=== PATIENT | female | born 1955 | race Caucasian/White ===

== ENCOUNTER 2017-09-06 12:41 | Emergency (ER) | payer OTHER ==
[2017-09-06 12:48] VITALS: BP 133/72; TEMP 98.1; BMI 24.3
[2017-09-06] MEDS ORDERED: KETOROLAC TROMETHAMINE 60 MG/2 ML VIAL IM ONE (14:01)
--- NOTE | 2017-09-06 14:01 | PDOC ---
History of Present Illness - General Chief Complaint: Pain Stated Complaint: SWOLLEN RT KNEE Time Seen by Provider: 09/06/17 13:34 History Source: Patient Exam Limitations: No Limitations - History of Present Illness Initial Comments: 09/06/17 13:56 62-year-old female presents to the ED with 2 months of right knee discomfort with an continual swelling. Patient denies fever, chills, radiation of pain, or decreased sensation distal of discomfort. Patient states had x-rays done about 2 months ago by her PMD and stated she had arthritis and to follow up with orthopedist. Patient states did not follow up and has been taking Motrin as needed for discomfort. Timing/Duration: intermittent Severity: mild Associated Symptoms: reports: denies symptoms Past History - Travel Traveled outside of the country in the last 30 days: No - Past Medical History Allergies/Adverse Reactions: Allergies Allergy/AdvReac Type Severity Reaction Status Date / Time No Known Allergies Allergy Verified 09/06/17 12:48 Home Medications: Ambulatory Orders Lisinopril [Prinivil] 20 mg PO DAILY 09/06/17 Asthma: Yes COPD: No HTN: Yes - Suicide/Smoking/Psychosocial Hx Smoking Status: No Smoking History: Never smoked Number of Cigarettes Smoked Daily: 0 Hx Alcohol Use: No Drug/Substance Use Hx: No Substance Use Type: None Patient Lives Alone: No Lives with/in: spouse/SO Review of Systems - Review of Systems Able to Perform ROS?: Yes Constitutional: No: Symptoms Reported HEENTM: No: Symptoms Reported Respiratory: No: Symptoms reported Cardiac (ROS): No: Symptoms Reported Musculoskeletal: Yes: Joint Pain (rt knee) Integumentary: No: Erythema Hematologic/Lymphatic: No: Symptoms Reported *Physical Exam - Vital Signs Last Vital Signs Temp Pulse Resp BP Pulse Ox 98.1 F 100 H 20 133/72 99 09/06/17 12:45 09/06/17 12:45 09/06/17 12:45 09/06/17 12:45 09/06/17 12:45 - Physical Exam General Appearance: Yes: Nourished, Appropriately Dressed. No: Apparent Distress Cardiovascular: positive: Regular Rhythm, Tachycardia. negative: Murmur Gastrointestinal/Abdominal: positive: Soft. negative: Tenderness Musculoskeletal: negative: Normal Inspection Extremity: positive: Normal Range of Motion, Tender (Lateral aspect of right knee with noted joint effusion. No increased warmth or redness noted. ) Integumentary: positive: Normal Color, Warm, Moist Neurologic: positive: Motor Strength 5/5 (ambulatory) ED Treatment Course - RADIOLOGY Radiology Studies Ordered: Category Date Time Status KNEE 3 POS-RIGHT [RAD] Stat Radiology 09/06/17 13:49 Ordered Medical Decision Making - Medical Decision Making 09/06/17 14:03 Patient with complaints of intermittent right knee pain worse with ambulation for the past 2 months. Patient was told by her PMD to follow up with orthopedist secondary to arthritis but states did not do so and since the pain continued and slightly worse and she decided come to the ER. Patient denies fever or posterior leg pain. Patient ordered for right knee x-ray 09/06/17 14:20 Since 07/15/2017 there is no change of an adverse nature. No acute pathology seen. Patient will be given referral for orthopedist Dr. Hoskins. *DC/Admit/Observation/Transfer Diagnosis at time of Disposition: Right knee pain Qualifiers: Chronicity: unspecified Qualified Code(s): M25.561 - Pain in right knee - Discharge Dispostion Disposition: HOME Condition at time of disposition: Improved - Referrals Referrals: Riri Ro MD [Primary Care Provider] - Pineda Hoskins MD [Staff Physician] - - Patient Instructions Printed Discharge Instructions: DI for Knee Effusion Additional Instructions: I recommend elevating your right leg when possible to decrease swelling and follow up with referred orthopedist. You may also take Motrin 600 mg for discomfort. You also may apply heat to the affected area which may alleviate her discomfort. - Post Discharge Activity
[2017-09-06 14:09] VITALS: PULSE 94
[2017-09-06] MEDS ORDERED: KETOROLAC TROMETHAMINE 60 MG/2 ML VIAL ONE (14:09)
== END 2017-09-06 14:24 | disposition home or self-care (01) ==
LOC: JERFT 12:41
PROC: 3E0233Z Introduction of Anti-inflammatory into Muscle, Percutaneous Approach (ICD-10-PCS; principal; 2017-09-06)
DX: M13.861 Other specified arthritis, right knee (principal); M25.561 Pain in right knee; I10 Essential (primary) hypertension; J45.909 Unspecified asthma, uncomplicated
CPT/HCPCS: 73562-TC-RT; 96372; 99281-25

== ENCOUNTER 2018-11-01 14:40 | Emergency (ER) | payer OTHER ==
[2018-11-01 14:47] VITALS: BP 141/54; PULSE 100; TEMP 98.3; BMI 23.8
--- NOTE | 2018-11-01 14:49 | PDOC ---
Rapid Medical Evaluation Chief Complaint: Injury Time Seen by Provider: 11/01/18 14:47 Medical Evaluation: Allergies Allergy/AdvReac Type Severity Reaction Status Date / Time No Known Allergies Allergy Verified 11/01/18 14:43 Vital Signs Temp Pulse Resp BP Pulse Ox 98.3 F 100 H 18 141/54 L 98 11/01/18 14:45 11/01/18 14:45 11/01/18 14:45 11/01/18 14:45 11/01/18 14:45 11/01/18 14:48 I have performed a brief in-person evaluation of the patient. The patient presents with a chief complaint of: numbness to right arm today. Patient states have now resolved with no weakness, no dizziness, no blurred vision and no heaviness in limbs Pertinent physical exam findings. NAD lungs clear bilaterally +strength = in both upper extremities + sensation bilaterally I have ordered the following. The patient will proceed to the ED for further evaluation.
--- NOTE | 2018-11-01 15:25 | PDOC ---
History of Present Illness - General Chief Complaint: Injury Stated Complaint: ARM PAIN Time Seen by Provider: 11/01/18 14:47 History Source: Patient Exam Limitations: No Limitations - History of Present Illness Initial Comments: 11/01/18 16:40 63-year-old female presents to ED for evaluation of right leg heaviness yesterday that lasted for about 5 minutes while she was sitting down. Patient states today again with sitting down at her desk when her right arm went heavy and felt numb. Patient states took 2 baby aspirin and within minutes her symptoms resolved. Patient denies any headache, visual changes, nausea, weakness previous stroke or TIA but was concerned of her symptoms and came to the ER Timing/Duration: resolved prior to arrival Severity: moderate Associated Symptoms: reports: denies symptoms Past History - Travel Traveled outside of the country in the last 30 days: No Close contact w/someone who was outside of country & ill: No - Past Medical History Allergies/Adverse Reactions: Allergies Allergy/AdvReac Type Severity Reaction Status Date / Time No Known Allergies Allergy Verified 11/01/18 14:43 Home Medications: Ambulatory Orders Lisinopril [Prinivil] 20 mg PO DAILY 09/06/17 Asthma: Yes COPD: No HTN: Yes - Suicide/Smoking/Psychosocial Hx Smoking Status: No Smoking History: Never smoked Number of Cigarettes Smoked Daily: 0 Hx Alcohol Use: No Drug/Substance Use Hx: No Substance Use Type: None Patient Lives Alone: No Lives with/in: spouse/SO Review of Systems - Review of Systems Able to Perform ROS?: Yes Constitutional: No: Symptoms Reported HEENTM: No: Symptoms Reported Respiratory: No: Symptoms reported Cardiac (ROS): No: Symptoms Reported ABD/GI: No: Symptoms Reported : No: Symptoms Reported Musculoskeletal: No: Symptoms Reported Integumentary: No: Symptoms Reported Neurological: Yes: Numbness, Other Hematologic/Lymphatic: No: Symptoms Reported *Physical Exam - Vital Signs Last Vital Signs Temp Pulse Resp BP Pulse Ox 98.3 F 100 H 18 141/54 L 98 11/01/18 14:45 11/01/18 14:45 11/01/18 14:45 11/01/18 14:45 11/01/18 14:45 - Physical Exam General Appearance: Yes: Nourished, Appropriately Dressed. No: Apparent Distress HEENT: positive: EOMI, SUNDAR Neck: positive: Supple. negative: Tender Respiratory/Chest: positive: Lungs Clear, Normal Breath Sounds. negative: Respiratory Distress, Accessory Muscle Use Cardiovascular: positive: Regular Rhythm, Regular Rate. negative: Murmur Extremity: positive: Normal Capillary Refill, Normal Inspection, Normal Range of Motion. negative: Tender Integumentary: positive: Normal Color, Warm, Moist Neurologic: positive: Fully Oriented, Normal Mood/Affect, Motor Strength 5/5. negative: Numbness, Sensory Deficit Moderate Sedation - Procedure Monitoring Vital Signs: Procedure Monitoring Vital Signs Temperature 98.3 F 11/01/18 14:45 Pulse Rate 100 H 11/01/18 14:45 Respiratory Rate 18 11/01/18 14:45 Blood Pressure 141/54 L 11/01/18 14:45 O2 Sat by Pulse Oximetry (%) 98 11/01/18 14:45 ED Treatment Course - RADIOLOGY Radiology Studies Ordered: Category Date Time Status HEAD CT WITHOUT CONTRAST [CT] Stat CT Scan 11/01/18 15:10 Ordered Medical Decision Making - Medical Decision Making 11/01/18 15:45 Chief complaint: Intermittent numbness to the right upper and lower extremity since yesterday. No complaints presently. Patient with history of dyslipidemia Exam: No cranial nerve deficit stroke scale 0. Plan head CT: 11/01/18 17:18 CT of the head shows no definitive open interval change identified in comparison with prior CT from 2015 *DC/Admit/Observation/Transfer Diagnosis at time of Disposition: Arm heaviness - Discharge Dispostion Disposition: HOME Condition at time of disposition: Good - Referrals Referrals: Abigail Fournier MD [Primary Care Provider] - - Patient Instructions Printed Discharge Instructions: DI for Numbness/tingling Additional Instructions: Follow up with Primary care physician and return to ED if symptoms return or worsen. - Post Discharge Activity
== END 2018-11-01 17:39 | disposition home or self-care (01) ==
LOC: JER 14:40
DX: R20.0 Anesthesia of skin (principal); I10 Essential (primary) hypertension; E78.5 Hyperlipidemia, unspecified; J45.909 Unspecified asthma, uncomplicated
CPT/HCPCS: 70450-TC; 99281-25